=== PATIENT | male | born 1965 | race Caucasian/White ===

== ENCOUNTER 2023-12-03 07:38 | Inpatient (IN) | payer OTHER, SELFPAY ==
[2023-12-03] VITALS (20 sets, daily range): BP systolic 137–195; BP diastolic 85–105; BMI 30.3
[2023-12-03] MEDS: CELEBREX 200 MG PO (08:14)
[2023-12-03] MEDS: TYLENOL 1000 MG PO (08:14)
--- NOTE | 2023-12-03 13:46 | W.PN.UPDATE ---
Update Note
Progress Note Update
58M s/p R rTSA explant, debridement and irrigation and temporary antibiotic cement spacer hemiarthroplasty stage 1 for periprosthetic joint infection with Dr. Washington
-preop lab testing from [facility] shows C. acnes on growth from draining proximal wound, sensitivities not performed
-vanc powder and abx IV given intraop after multiple cultures taken
-NWB to RUE; sling to RUE; OT consult
-D/C planning; PICC line placed preop
-ID consulted, pending recs; appreciate assistance in management of this patient
-AM labs ordered for CBC, CMP, ESR and CRP- further labs per ID recs for trending inflammatory markers
-reports itching from some opioids, requested tramadol- pain regimen placed.
-DVT ppx of 81mg BID.
-regular diet
-possible discharge 1-2 days pending ID recs and d/c planning.
[2023-12-03] MEDS: SUBLIMAZE 50 MCG IV ×2 (13:50→14:18)
[2023-12-03] MEDS: TYLENOL 650 MG PO ×3 (16:01→23:51)
[2023-12-03] MEDS: TRANDATE 5 MG IV (16:19)
[2023-12-03] MEDS: NORMOSOL-R 1000 IV (17:01)
--- NOTE | 2023-12-03 17:03 | CON.ID ---
Consultation
-
Date/Time Consultation Requested: December 03, 2023 1330
Date/Time Consultation Performed: December 03, 2023 1700
Requesting Provider: Dr. Gustavo Washington
Performing Provider: Dr. Karen Brizuela
Reason for Consultation: Infected shoulder prosthetic joint
Chief Complaint / Past History
Chief Complaint
Painful shoulder
History of Present Illness
58-year-old male with history of hypertension, hypothyroidism, reverse total shoulder arthroplasty in September 2022 at [facility]. He then started having right shoulder pain approximately 3 months ago. More than 1 month ago he developed he
developed a golf ball sized lump on his shoulder. His orthopedic at [facility] sent him for ultrasound-guided aspiration of the shoulder which which showed francisco pus. He was started on doxycycline right away. However the lump continued to
enlarge and developed a grullon. He had surrounding erythema and significant pain. The orthopedic office aspirated the shoulder abscess. By report culture culture grew Cutibacterium acne. However his orthopedic has retired and patient was
therefore referred to Dr. Washington. Today he is status post explant of the prosthesis, placement of antibiotic impregnated cement spacer. Positive sweats at night. Patient reports that this is a Worker's Compensation case. He has had multiple
injuries from work. 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
Past History
Additional Past Medical History:
Hypothyroidism
Hypertension
Dyslipidemia
Right shoulder replacement 2022 at [facility]
Bilateral knee replacement
L4-L5 surgery with hardware.
Left elbow, bilateral wrists, right arm surgeries
Allergy History:
cat dander Allergy (Verified 12/03/23 08:05)
congestion
Opioids - Morphine Analogues Allergy (Verified 12/03/23 16:13)
Itching
sheep derived (ovine) Allergy (Verified 12/03/23 16:13)
mouth & tongue swells
walnut Allergy (Verified 12/03/23 16:13)
mouth & tongue swells
GOAT PRODUCTS Allergy (Uncoded 12/03/23 16:13)
mouth & tongue swells
Medications Reviewed: Yes
Current Antibiotics:
cefazolin pre-op
Social History
Tobacco: Non-Smoker
Alcohol: Occasional
Drug: None
Personal:
Living: With Family
Family History
Family History: Not Pertinent
Review of Systems
Review of Systems
Cardiovascular: Negative Chest Pain or Dyspnea
Respiratory: Negative Dyspnea or Cough
Gasteroenterology: Negative Nausea or Vomiting
Genital / Urological: Negative Dysuria or Flank Pain
Endocrine: Negative Weakness
Skin / Hair / Nails: Negative Rash
Neurological: Negative Headache or Dizziness
All systems: All other systems were reviewed and were negative
Vital Signs
Temp Pulse Resp BP Pulse Ox
97.8 F 69 16 158/89 96
12/03/23 13:30 12/03/23 16:30 12/03/23 16:30 12/03/23 16:30 12/03/23 16:30
Physical Exam
Physical Exam
Constitutional: No Acute Distress and Comfortable
Eyes: No Conjunctival Hemorrhage and Sclera Anicteric
Cardiovascular: Regular Rate and S1/S2
Pulmonary: Clear
Gastrointestinal: Soft, Non Tender, Non Distended and Normal Bowel Sounds
Extremities: Negative Edema
Musculoskeletal: Other (Right shoulder post-op dressing in place.)
Neurological: AO x 3
Lines: PICC (LUE intact)
Microbiology Results
Micro:
12/03/23 12:25 Fungal Smear - Pending
Shoulder - Right
12/03/23 12:25 Anaerobic Culture - Pending
Shoulder - Right
12/03/23 12:25 Wound Culture - Pending
Shoulder - Right Gram Stain - Pending
12/03/23 11:33 Fungal Culture - Pending
Shoulder - Right
12/03/23 11:33 Anaerobic Culture - Pending
Shoulder - Right
12/03/23 11:33 Wound Culture - Pending
Shoulder - Right Gram Stain - Pending
12/03/23 11:45 Fungal Culture - Pending
Shoulder - Right
12/03/23 11:45 Anaerobic Culture - Pending
Shoulder - Right
12/03/23 11:45 Wound Culture - Pending
Shoulder - Right Gram Stain - Pending
12/03/23 11:50 Fungal Culture - Pending
Shoulder - Right
12/03/23 11:50 Anaerobic Culture - Pending
Shoulder - Right
12/03/23 11:50 Wound Culture - Pending
Shoulder - Right Gram Stain - Pending
12/03/23 11:36 Tissue Culture - Pending
Shoulder - Right Gram Stain - Pending
12/03/23 11:36 Fungal Culture - Pending
Shoulder - Right
12/03/23 11:36 Anaerobic Culture - Pending
Shoulder - Right
12/03/23 11:18 Tissue Culture - Pending
Tissue Gram Stain - Pending
12/03/23 11:18 Fungal Culture - Pending
Tissue
12/03/23 11:18 Anaerobic Culture - Pending
Tissue
12/03/23 11:47 Fungal Culture - Pending
Shoulder - Right
12/03/23 11:47 Anaerobic Culture - Pending
Shoulder - Right
12/03/23 11:47 Wound Culture - Pending
Shoulder - Right Gram Stain - Pending
Assessment / Plan
# Right shoulder late PJI
- Outpt aspiration cx C. acne
- 12/03/23 s/p hardware explant, abx cement spacer Stage 1 of 2 revision
- Multiple OR cx's pending
- Recommend ceftriaxone 2g IV q24 x 6 weeks through 01/14/24.
Home Infusion Sheet placed in chart and [place]-Texted to case management.
--- NOTE | 2023-12-03 18:02 | PTCARENOTE ---
Received patient from PACU around 1715 via bed in stable condition. Sling to RUE with aquacel to shoulder C/D/I. + movement +sensation + radial pulse. Patient BP elevated. Dr. Washington made aware. Patient oriented to room. Call childers in reach.
[2023-12-03] MEDS: COREG 3.125 MG PO (18:11)
[2023-12-03] MEDS: STERILE WATER FOR INJECTION 20 ML IV (18:11)
[2023-12-03] MEDS: ROCEPHIN 2000 MG IV (18:11)
[2023-12-03] MEDS: LOW STRENGTH ASPIRIN 81 MG PO (20:24)
[2023-12-03] MEDS: NEURONTIN 800 MG PO (20:24)
[2023-12-03] MEDS: SENOKOT 17.1999999999999993 MG PO (20:25)
[2023-12-03] MEDS: COLACE 100 MG PO (20:25)
[2023-12-03] MEDS: FLOMAX 0.400000000000000022 MG PO (23:51)
[2023-12-03] MEDS: DILAUDID 0.5 MG IV (23:52)
--- NOTE | 2023-12-04 00:30 | PTCARENOTE ---
2030: Spoke to pt about straight cath protocol, pt asked for more time prior to being straight cathed. Pt stated that he does not have the urge to void at this time. RN explained that 6 hrs from last void, per hospital protocol, pt must be bladder
scanned and if >400, pt will be straight cathed. Pt verbalized understanding. Bladder scan result 386.
0000: Pt was bladder scanned for 615, pt asked to sit on toilet to try to void. PRN flomax given and RN told patient that straight cath will be done if no void in near future. 0030 - patient was straight cathed for 825 clear yellow urine, again RN
explained bladder scan and straight cath protocol, patient verbalized understanding. assessment ongoing.
[2023-12-04 03:05] VITALS: BP 165/107
[2023-12-04] MEDS: TYLENOL PO ×2 (04:07→14:52)
[2023-12-04 05:04] LABS: % Basophils 0.1 % (0-2); % Immature Granulocytes 0.4 % (0-0.5); % Lymphocytes 11.1 % (20.5-51.1); % Monocytes 4.1 % (1.7-9.3); % Neutrophils 84.3 % (42.2-75.2); Absolute Lymphocytes 1.1 10^3/uL (1.2-3.4); Absolute Monocytes 0.4 10^3/uL (0.1-0.6); Hematocrit 34.7 % (39.0-52.0); Hemoglobin 11.1 g/dL (13.0-18.0); Mean Corpuscular Hgb 27.5 pg (27.0-31.0); Mean Corpuscular Volume 86.1 fL (80.0-94.0); Mean Platelet Volume 10.2 fL (7.4-10.4); Nucleated Red Blood Cells % 0 % (-); Platelet Count 221 10^3/uL (130-400); Red Blood Cell Count 4.03 10^6/uL (4.70-6.10); Red Cell Dist. Width 15.2 % (11.5-14.5); White Blood Cell Count 9.5 10^3/uL (4.8-10.8)
[2023-12-04 05:34] LABS: ALT (SGPT) 15 U/L (0-50); AST (SGOT) 19 U/L (17-59); Albumin 3.4 g/dl (3.5-5.0); Alkaline Phosphatase 129 U/L (38-126); Blood Urea Nitrogen 21 mg/dl (9-20); Calcium 8.4 mg/dl (8.4-10.2); Carbon Dioxide 24 mmol/L (22-30); Chloride 106 mmol/L (98-107); Estimated Creatinine Clearance 82 ml/min; Glucose 173 mg/dl (70-99); Potassium 4.6 mmol/L (3.5-5.1); Sodium 141 mmol/L (135-145); Total Bilirubin 0.3 mg/dl (0.2-1.3); Total Protein 6.2 g/dl (6.3-8.2); eGFR > 60.00
[2023-12-04] MEDS: SYNTHROID 137 MCG PO (05:55)
--- NOTE | 2023-12-04 07:21 | W.PN.ORTHO ---
Today's Communication / Plan
-
Sling in place
Nonweightbearing right upper extremity
PICC line in place with antibiotics per ID recommendation
Follow labs
Unfortunately patient states that he is allergic to all pain medication. Discussed pain medication options and he states that he does not know. For now try tramadol along with Benadryl to help offset the itch. Hopefully when his comes in
today she may be able to relay what type of pain medication he has tolerated in the past
Throat irritation noted likely from anesthesia yesterday so throat lozenge are ordered
Home once medically stable
Assessment
.
Distal Motor Intact: Yes
Dressing:
Clean, dry and intact
Adjustments made to sling and hopefully this helps
Plan
.
Surgery / Date: Explant R TSA w/ katiuska/ABX spacer 12/02 Ritting
DVT Prophylaxis: Aspirin
Activity:
Out of bed.
PT/OT
Discharge Plan: Home
Subjective
.
.:
Patient is in a lot of pain this morning. He did not sleep at all last night. He has been having a lot of itching on the bottom of his feet. His pain is a 10 out of 10. Unfortunately he states that he is allergic to all pain medication. We will
try tramadol along with Benadryl and see how he does this morning.
Vital Signs and Labs
.
Vital Signs and Labs:
Lab Results
12/04/23 04:16
12/04/23 04:16
Temp Pulse Resp BP Pulse Ox
97.7 F 78 18 165/107 98
12/04/23 03:05 12/04/23 03:05 12/04/23 03:05 12/04/23 03:05 12/04/23 03:05
--- NOTE | 2023-12-04 07:23 | PTCARENOTE ---
RN attempted to medicated pt for c/o pain to right shoulder. Pt in room with immobilizer in pieces, attempting to piece it back together. RN offered help, pt said to leave him alone. Declined pain med and PVR scan. MANNY Macedo made aware.
[2023-12-04 08:02] LABS: Erythrocyte Sed Rate 15 mm/hour (0-20)
[2023-12-04] MEDS: BENADRYL 25 MG IV ×3 (08:48→22:00)
[2023-12-04] MEDS: ANESTHETIC LOZENGE 1 LOZENGE PO ×2 (08:48→12:35)
[2023-12-04] MEDS: TYLENOL 650 MG PO ×3 (09:01→20:41)
[2023-12-04 09:25] VITALS: BP 171/100
[2023-12-04] MEDS: COZAAR 50 MG PO (09:32)
[2023-12-04] MEDS: COREG 3.125 MG PO ×2 (09:33→20:41)
[2023-12-04] MEDS: NEURONTIN 800 MG PO ×2 (09:34→20:41)
[2023-12-04] MEDS: LOW STRENGTH ASPIRIN 81 MG PO ×2 (09:34→20:41)
[2023-12-04] MEDS: SENOKOT 17.1999999999999993 MG PO ×2 (09:34→20:41)
[2023-12-04] MEDS: COLACE 100 MG PO ×2 (09:34→20:41)
[2023-12-04] MEDS: PROTONIX 40 MG PO (09:34)
--- NOTE | 2023-12-04 09:38 | W.PN.ID1 ---
Date of Service
Date of Service: December 04, 2023
Today's Communication
Continue ceftriaxone 2g IV q24 x 6 weeks through 01/14/24.
Assessment / Plan
# Right shoulder late PJI
- Outpt aspiration cx C. acne
- 12/03/23 s/p hardware explant, abx cement spacer Stage 1 of 2 revision
- Multiple OR cx's pending
- Continue ceftriaxone 2g IV q24 x 6 weeks through 01/14/24.
Home Infusion Sheet submitted to shoe caser.
#Additional Past Medical History:
Hypothyroidism
Hypertension
Dyslipidemia
Right shoulder replacement 09/2022 at [facility]
Bilateral knee replacement
L4-L5 surgery with hardware.
Left elbow, bilateral wrists, right arm surgeries
Chief Complaint
-: Other (PJI)
Subjective / Review of Systems
+ post-op pain. c/o itiching from narcotic
Vital Signs / Physical Exam
Vital Signs
Vital Signs
Temp Pulse Resp BP Pulse Ox
98.2 F 75 20 171/100 96
12/04/23 09:25 12/04/23 09:25 12/04/23 09:25 12/04/23 09:25 12/04/23 09:25
Physical Exam
Constitutional: Comfortable
Cardiovascular: Regular Rate and S1/S2
Pulmonary: Clear
Gastrointestinal: Soft, Non Tender and Non Distended
Neurological: AO x 3
Lines: PICC (LUE)
Objective Data
Lab Data
Lab Results
12/04/23 04:16
12/04/23 04:16
ESR 15 mm/hour (0-20) 12/04/23 04:16
Estimated Creat Clear 82 ml/min 12/04/23 04:16
Total Bilirubin 0.3 mg/dl (0.2-1.3) 12/04/23 04:16
AST 19 U/L (17-59) 12/04/23 04:16
ALT 15 U/L (0-50) 12/04/23 04:16
Alkaline Phosphatase 129 U/L (38-126) H 12/04/23 04:16
C-Reactive Protein 10.10 mg/L (0.0-10.00) H 12/04/23 04:16
Most recent labs reviewed.
Micro Results:
12/03/23 11:47 Wound Culture - Pending
Shoulder - Right Gram Stain - Preliminary
12/03/23 12:25 Wound Culture - Pending
Shoulder - Right Gram Stain - Preliminary
12/03/23 11:50 Wound Culture - Pending
Shoulder - Right Gram Stain - Preliminary
12/03/23 11:33 Wound Culture - Pending
Shoulder - Right Gram Stain - Preliminary
12/03/23 11:18 Tissue Culture - Pending
Tissue Gram Stain - Preliminary
12/03/23 11:36 Tissue Culture - Pending
Shoulder - Right Gram Stain - Preliminary
12/03/23 11:45 Wound Culture - Pending
Shoulder - Right Gram Stain - Preliminary
12/03/23 11:36 Fungal Culture - Preliminary
Shoulder - Right Culture in progress.
Positive cultures are reported as soon as detected.
Final report to follow in four to five weeks.
12/03/23 11:18 Fungal Culture - Preliminary
Tissue Culture in progress.
Positive cultures are reported as soon as detected.
Final report to follow in four to five weeks.
12/03/23 11:47 Fungal Culture - Preliminary
Shoulder - Right Culture in progress.
Positive cultures are reported as soon as detected.
Final report to follow in four to five weeks.
12/03/23 11:33 Fungal Culture - Preliminary
Shoulder - Right Culture in progress.
Positive cultures are reported as soon as detected.
Final report to follow in four to five weeks.
12/03/23 11:45 Fungal Culture - Preliminary
Shoulder - Right Culture in progress.
Positive cultures are reported as soon as detected.
Final report to follow in four to five weeks.
12/03/23 11:50 Fungal Culture - Preliminary
Shoulder - Right Culture in progress.
Positive cultures are reported as soon as detected.
Final report to follow in four to five weeks.
12/03/23 12:25 Fungal Smear - Pending
Shoulder - Right
12/03/23 12:25 Anaerobic Culture - Pending
Shoulder - Right
12/03/23 11:33 Anaerobic Culture - Pending
Shoulder - Right
12/03/23 11:45 Anaerobic Culture - Pending
Shoulder - Right
12/03/23 11:50 Anaerobic Culture - Pending
Shoulder - Right
12/03/23 11:36 Anaerobic Culture - Pending
Shoulder - Right
12/03/23 11:18 Anaerobic Culture - Pending
Tissue
12/03/23 11:47 Anaerobic Culture - Pending
Shoulder - Right
[2023-12-04] MEDS: ULTRAM 25 MG PO (09:47)
--- NOTE | 2023-12-04 09:49 | CM ---
Addendum entered by TAD Fernandez 12/04/23 16:19:
patient to stay overnight and be dc tomorrow. He will arrange to get a ride. He spoke to Vannesa at [facility] and has 1400 appt on 12/05/23 at infusion center.
Addendum entered by TAD Fernandez 12/04/23 15:34:
Vannesa from [facility] has auth from worker's comp. Vannesa suggesting use [facility] infusion center near [facility] for first infusion tomorrow with training by their staff. Then every Friday he has to come back to get dressing change and
and lab draws. [facility] offers transport if needed for the Mondays. Navigator spoke to patient who is agreeable to go to Infusion center tomorrow for training and weekly thereafter for lab draws and PICC dressing changes.
Patient can get ride for tomorrow and has ride home later today.
TT sent to Khai BRYANT and Dr. Washington and DR. Byrne with update and to get discharge done.
Addendum entered by TAD Fernandez 12/04/23 10:00:
SPoke to Vannesa at [facility]. Faxing clinical, script, PICC line , Chest xray and face sheet to her. fax [phone]
Original Note:
Met [facility] patient who is admitted after Explant R TSA w/ katiuska/ABX spacer 12/02. He lives with in multi level home. 3 steps in with half bath on entry manager. UP full flight to full bathroom and bedrooms. He has rolling walker, cane,
crutches and thinks he has commode at home.
Prior to admit he was independent at home.
This is a worker's compensation case.
Patient said he has had trouble with worker's comp and has hired an attorney lawyer at [employer] [employer] with [employer] phone [phone].
Navigator left VM with Beatriz at partition notcher office asking if ok to send Hakan Garber at [employer] clinical to get coverage for home IV antibiotics. Navigator spoke to Hakan :His fax is [phone]. He said his company has used [facility] in past and
to send referral to them.
Navigator to send referral for IV antibiotics in [employer]scripts and fax information to office.
PCP Dr. Azam Lou
Pharmacy: [place] [place] [facility].
PLAN: home with IV antibiotics and labs to be drawn
[2023-12-04 10:21] VITALS: BP 171/98; PULSE 72
[2023-12-04] MEDS: ROCEPHIN 2000 MG IV (12:21)
[2023-12-04] MEDS: STERILE WATER FOR INJECTION 20 ML IV (12:21)
[2023-12-04 15:27] VITALS: BP 166/85
[2023-12-04] MEDS: DILAUDID 0.5 MG IV ×2 (17:13→22:27)
--- NOTE | 2023-12-04 17:48 | W.PN.UPDATE ---
Update Note
Progress Note Update
[place] text from Tanya Blanco that patient is all set up to go to an outpatient transfusion center for education on how to administer his IV antibiotics. Dr. Brizuela from infectious disease has recommended ceftriaxone 2 g IV x 6 weekss. Called and
spoke to patient's nurse, Shaneka Dennis, for patient update. He seems to be doing better with regards to pain. Tramadol does not completely control his pain. He has been doing Benadryl with Dilaudid which seems to work much better which control his
itching on the bottom of hi feet. He has been able to urinate on his own. Blood pressure has been elevated because of pain. Cannot obtain BP from right upper extremities because of surgery and PICC line left arm so BP obtained from his calf which
are not always accurate. Discussed with Jonathan Cuevas PA-C who is rounding tomorrow. Discharge instructions completed for tomorrow but will have to send prescriptions for pain medication
[2023-12-04] MEDS: LIPITOR 80 MG PO (20:42)
[2023-12-04 23:10] VITALS: BP 175/86
[2023-12-04 23:30] VITALS: BP 165/99
[2023-12-05] MEDS: TYLENOL PO (00:52)
[2023-12-05] MEDS: BENADRYL 25 MG IV ×2 (03:42→08:19)
[2023-12-05] MEDS: TYLENOL 650 MG PO ×2 (04:09→08:25)
[2023-12-05] MEDS: ROXICODONE 5 MG PO ×2 (04:09→08:27)
[2023-12-05] MEDS: SYNTHROID 137 MCG PO (05:10)
--- NOTE | 2023-12-05 06:08 | W.PN.ORTHO ---
Today's Communication / Plan
-
58-year-old male POD #2 Explant R TSA w/ katiuska/ABX spacer 6/5 Ritting
- Sling in place
- Nonweightbearing right upper extremity
- PICC line in place with antibiotics per ID recommendation
- Follow labs and intra-op cultures
- Patient reports less itchiness with Dilaudid. Prescription for Dilaudid 2 mg q6 hr PRN sent to pharmacy on file through [facility] with rx for Benadryl
- ASA 81mg BID x 4 weeks for DVT prophylaxis
- Patient will follow-up with orthopedics as an outpatient in 2 weeks
Assessment
.
Distal Motor Intact: Yes
Dressing:
Clean, dry and intact.
Assessment:
Explant R TSA w/ katiuska/ABX spacer 6/5 Ritting
Plan
.
Surgery / Date: Explant R TSA w/ katiuska/ABX spacer / Ritting
DVT Prophylaxis: Aspirin
Activity:
Out of bed.
PT/OT
Discharge Plan: Home
Subjective
.
.:
Patient resting comfortably. Reports less itchiness with Dilaudid. Eager for discharge.
Vital Signs and Labs
.
Vital Signs and Labs:
Lab Results
12/04/23 04:16
12/04/23 04:16
Temp Pulse Resp BP Pulse Ox
97.9 F 60 18 165/99 95
12/04/23 23:10 12/04/23 23:10 12/04/23 23:10 12/04/23 23:30 12/04/23 23:10
Physical Exam
-
Physical examination of the right upper extremity, with attention to the right shoulder reveals Aquacel dressing to be intact. Scant bloody drainage contained within the Aquacel dressing. Sling intact. No erythema. Digital ROM intact. Capillary
refills less than 2 seconds. NVI distally.
--- NOTE | 2023-12-05 06:20 | W.DS.TRANS ---
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
-
Discharge Instructions:
Sleep Apnea Risk Intermediate
Discharge Diagnosis/Procedures R shoulder explant prosthesis w/ temporary
antibiotic spacer
Diet No restrictions
Driving Restrictions Not until seen by your Dr
Bathing Restrictions OK to Shower
Instructions:
Stand-Alone Forms:
Changes to Home Medications: No
Discharge Medications:
DC Medications w/original date entered in [employer]
aspirin 81 mg tablet,delayed release 81 mg PO DAILY 12/01/23
atorvastatin 80 mg tablet 80 mg PO DAILY 12/01/23
carvedilol 3.125 mg tablet 3.125 mg PO BID 12/01/23
esomeprazole magnesium 40 mg capsule,delayed release 40 mg PO DAILY 12/01/23
gabapentin 800 mg tablet 800 mg PO BID 12/01/23
levothyroxine 137 mcg tablet (Synthroid) 137 mcg PO DAILY 12/01/23
losartan 50 mg tablet 50 mg PO DAILY 12/01/23
hydromorphone 2 mg tablet (Dilaudid) 2 mg PO Q6H PRN Pain #30 tabs 12/05/23
Home Medication Changes
Pending Results: No
Total time spent discharging patient (in min): 45 Minutes
[2023-12-05 08:09] VITALS: BP 183/98
[2023-12-05] MEDS: PROTONIX 40 MG PO (08:24)
[2023-12-05] MEDS: NEURONTIN 800 MG PO (08:24)
[2023-12-05] MEDS: COLACE 100 MG PO (08:25)
[2023-12-05] MEDS: LOW STRENGTH ASPIRIN 81 MG PO (08:25)
[2023-12-05] MEDS: COREG 3.125 MG PO (08:26)
[2023-12-05] MEDS: COZAAR 50 MG PO (08:26)
[2023-12-05] MEDS: SENOKOT 17.1999999999999993 MG PO (08:27)
--- NOTE | 2023-12-05 08:48 | CM ---
Addendum entered by TAD Fernandez 12/05/23 10:52:
phone [phone]. left voicemail to sweet pickled fruit maker patient at [facility]. Left Navigator cell phone number.
Patient prefers to get discharge instructions then meet at [facility]. RN for patient updated.
Original Note:
DIscharge in. Met with patient. HIs will pick him up at noon today.
PRovided written information to patient on who current adjustor is at [facility] [place] [facility] who approved home IV antibiotics.
[2023-12-05] MEDS: ROCEPHIN IV (12:01)
== END 2023-12-05 12:17 | disposition home or self-care (01) | DRG 497 ==
LOC: 2 SOUTH 07:38
PROVIDERS: Physician Assistant Surgical; ADMITTING PHYSICIAN Orthopaedic Surgery Hand Surgery; FAMILY PHYSICIAN Family Medicine; OTHER PHYSICIAN Internal Medicine Infectious Disease
PROC: 0RHJ08Z Insertion of Spacer into Right Shoulder Joint, Open Approach (ICD-10-PCS; 2023-12-03)
PROC: 0RPJ0JZ Removal of Synthetic Substitute from Right Shoulder Joint, Open Approach (ICD-10-PCS; 2023-12-03)
DX: T84.59XA Infection and inflammatory reaction due to other internal joint prosthesis, initial encounter (principal); I10 Essential (primary) hypertension; E03.9 Hypothyroidism, unspecified; Y79.2 Prosthetic and other implants, materials and accessory orthopedic devices associated with adverse incidents; E78.5 Hyperlipidemia, unspecified; Z96.611 Presence of right artificial shoulder joint; Z96.653 Presence of artificial knee joint, bilateral; Z79.82 Long term (current) use of aspirin; Z79.890 Hormone replacement therapy; Z79.899 Other long term (current) drug therapy; Z88.5 Allergy status to narcotic agent
CPT/HCPCS: 71045; 73020; 80053; 85025; 85652; 86140; 87070; 87075; 87076; 87077; 87102; 87176; 87205; 87206; 97165; 97535; C1713; C1776

== ENCOUNTER 2023-12-18 12:39 | Emergency (ER) | payer SELFPAY ==
[2023-12-18 12:41] VITALS: BP 157/105
--- NOTE | 2023-12-18 15:02 | ED.GENMED ---
History of Present Illness
General
Chief Complaint: Catheter/Tube Problem
Source: patient
Exam Limitations: none
Time Seen by Provider: 12/18/23 14:57
History of Present Illness
History of Present Illness:
58-year-old male presents for evaluation of bleeding site of PICC line at the left upper extremity. He is receiving IV antibiotics for shoulder infection. No fevers otherwise. No other complaints
Phy Exam
Physical Exam
Physical Exam:
General: Well-appearing male no acute respiratory distress
HEENT: Normocephalic atraumatic
Skin: PICC line left upper extremity now with new dressing no current bleeding no surrounding erythema nontender
Course
Vital Signs
Initial and Last Documented VS:
Initial Vital Signs
Temp Pulse Resp BP Pulse Ox
98.5 F 77 18 157/105 99
12/18/23 12:41 12/18/23 12:41 12/18/23 12:41 12/18/23 12:41 12/18/23 12:41
Last Documented Vital Signs
Temp Pulse Resp BP Pulse Ox
98.5 F 77 18 157/105 99
12/18/23 12:41 12/18/23 12:41 12/18/23 12:41 12/18/23 12:41 12/18/23 12:41
MDM/Problems Addressed
Differential Diagnosis Includes:
Bleeding from PICC line. The IV team was in the room and evaluating the patient and change the dressing. No further bleeding the patient is hemostatic. No indication for further intervention from the ER standpoint. Stable for discharge
*Critical Care Note
Total Time (30-74mins, 75-104mins- exclusive of procedures): Not Applicable
ED Attending Note
-
Portions of this chart may have been created with voice recognition software.� Occasional wrong word or��sound alike� substitutions may have occurred due to the inherent limitations of voice recognition software.
Discharge Plan
Departure
Patient Disposition: Home (Routine Discharge)
Date of Disposition: 12/18/23
Time of Disposition: 15:07
Patient with high blood pressure during this ER visit?: No
Discharge Problem:
Bleeding from PICC line
Instructions: Peripherally-Inserted Central Catheter
Prescriptions:
No Action
losartan 50 mg Tablet
50 mg PO DAILY
levothyroxine [Synthroid] 137 mcg Tablet
137 mcg PO DAILY
atorvastatin 80 mg Tablet
80 mg PO DAILY
carvedilol 3.125 mg Tablet
3.125 mg PO BID
gabapentin 800 mg Tablet
800 mg PO BID
esomeprazole magnesium 40 mg Capsule,Delayed Release(Dr/Ec)
40 mg PO DAILY
ceftriaxone 2 gram Recon Soln
2,000 mg IV Q24H 42 Days Qty: 45 0RF
hydromorphone [Dilaudid] 2 mg tablet
2 mg PO Q6H PRN (Reason: Pain) Qty: 30 0RF
Rx Instructions:
Rx sent to pharmacy on file through [facility]
diphenhydramine HCl [Benadryl] 25 mg capsule
25 mg PO .every 6-8 hours PRN (Reason: itching) Qty: 30 0RF
Rx Instructions:
Rx sent to pharmacy on file through [facility]
aspirin 81 mg Tablet,Delayed Release (Dr/Ec)
81 mg PO BID Qty: 0 0RF
Referrals:
Gustavo Washington MD [Family Provider] -
Activity Restrictions/Additional Instructions:
Please return if needed otherwise continue to seek care through your treating physicians
Interventions
Interventions:
*Risk Screen - Suicide Last Done: 12/18/23 12:41
*General Assessment Last Done: 12/18/23 12:41
*Neglect/Abuse Screening Last Done: 12/18/23 12:41
*ED COVID-19 Vaccine History Last Done: 12/18/23 13:28
Discharge Date and Time
Print Language: KOREAN
== END 2023-12-18 15:14 | disposition home or self-care (01) ==
LOC: EMR 12:39
PROVIDERS: EMERGENCY PHYSICIAN Emergency Medicine; FAMILY PHYSICIAN Orthopaedic Surgery Hand Surgery
DX: T82.838A Hemorrhage due to vascular prosthetic devices, implants and grafts, initial encounter (principal); X58.XXXA Exposure to other specified factors, initial encounter
CPT/HCPCS: 99282

== ENCOUNTER → 2024-01-30 08:28 | Outpatient (REF) | payer OTHER, SELFPAY ==
[2024-01-30 11:07] LABS: % Basophils 1.1 % (0-2); % Immature Granulocytes 0.5 % (0-0.5); % Lymphocytes 27.9 % (20.5-51.1); % Monocytes 8.7 % (1.7-9.3); % Neutrophils 55.8 % (42.2-75.2); Absolute Basophils 0.1 10^3/uL (0-0.2); Absolute Eosinophils 0.4 10^3/uL (0-0.7); Absolute Lymphocytes 1.7 10^3/uL (1.2-3.4); Absolute Monocytes 0.5 10^3/uL (0.1-0.6); Absolute Neutrophils 3.5 10^3/uL (1.4-6.5); Hematocrit 44.7 % (39.0-52.0); Hemoglobin 14.6 g/dL (13.0-18.0); Mean Corp Hgb Conc. 32.7 g/dL (33.0-37.0); Mean Corpuscular Hgb 28.5 pg (27.0-31.0); Mean Corpuscular Volume 87.3 fL (80.0-94.0); Mean Platelet Volume 10.4 fL (7.4-10.4); Nucleated Red Blood Cells % 0 % (-); Platelet Count 223 10^3/uL (130-400); Red Blood Cell Count 5.12 10^6/uL (4.70-6.10); Red Cell Dist. Width 14.6 % (11.5-14.5); White Blood Cell Count 6.2 10^3/uL (4.8-10.8)
[2024-01-30 11:20] LABS: Blood Urea Nitrogen 15 mg/dl (9-20); Calcium 9.5 mg/dl (8.4-10.2); Carbon Dioxide 26 mmol/L (22-30); Chloride 109 mmol/L (98-107); Glucose 103 mg/dl (70-99); Potassium 4.5 mmol/L (3.5-5.1); Sodium 143 mmol/L (135-145); eGFR > 60.00
[2024-01-30 11:24] LABS: Erythrocyte Sed Rate 5 mm/hour (0-20)
[2024-01-30 11:29] LABS: C-Reactive Protein < 5.00 mg/L (0.0-10.00)
[2024-01-30 11:47] LABS: Glycohemoglobin (HgbA1c) 5.8 % (4.0-5.6)
== END ==
LOC: REG 08:28
PROVIDERS: ATTENDING PHYSICIAN Orthopaedic Surgery Hand Surgery; FAMILY PHYSICIAN Family Medicine; REFERRING PHYSICIAN Family Medicine
DX: N17.9 Acute kidney failure, unspecified (principal)
CPT/HCPCS: 36415; 80048; 83036; 85025; 85652; 86140; 87070

== ENCOUNTER 2024-02-04 06:35 | Inpatient (IN) | payer OTHER, SELFPAY ==
[2024-02-04] VITALS (9 sets, daily range): BP systolic 109–158; BP diastolic 71–98; BMI 29.6
[2024-02-04] MEDS: NORMOSOL-R 1000 IV (07:41)
[2024-02-04] MEDS: VANCOCIN 300 MG IV (07:42)
[2024-02-04] MEDS: VANCOCIN 300 ML IV (07:42)
[2024-02-04] MEDS: CELEBREX 200 MG PO (07:50)
[2024-02-04] MEDS: TYLENOL 1000 MG PO (07:58)
[2024-02-04] MEDS: VANCOCIN 200 IV (11:58)
== END 2024-02-04 13:35 | disposition home or self-care (01) | DRG 483 ==
LOC: PACUI 06:35
PROVIDERS: ADMITTING PHYSICIAN Orthopaedic Surgery Hand Surgery
PROC: 0RRJ0JZ Replacement of Right Shoulder Joint with Synthetic Substitute, Open Approach (ICD-10-PCS; 2024-02-04)
PROC: 0RPJ08Z Removal of Spacer from Right Shoulder Joint, Open Approach (ICD-10-PCS; 2024-02-04)
DX: T84.59XA Infection and inflammatory reaction due to other internal joint prosthesis, initial encounter (principal); Y83.1 Surgical operation with implant of artificial internal device as the cause of abnormal reaction of the patient, or of later complication, without mention of misadventure at the time of the procedure; Z96.611 Presence of right artificial shoulder joint; Z98.890 Other specified postprocedural states
CPT/HCPCS: 23474; 20705; 73020; C1713; C1776

== ENCOUNTER 2024-02-18 06:21 | Day surgery (SDC) | payer OTHER, SELFPAY ==
[2024-02-18] VITALS (10 sets, daily range): BP systolic 12–173; BP diastolic 91–105; BMI 29.8
[2024-02-18] MEDS: TYLENOL 1000 MG PO (13:31)
[2024-02-18] MEDS: NORMOSOL-R 1000 IV (13:32)
== END 2024-02-18 19:07 | disposition home or self-care (01) ==
LOC: SDS 06:21
PROVIDERS: ATTENDING PHYSICIAN Orthopaedic Surgery Hand Surgery
DX: T84.028A Dislocation of other internal joint prosthesis, initial encounter (principal); Y79.2 Prosthetic and other implants, materials and accessory orthopedic devices associated with adverse incidents; M25.511 Pain in right shoulder; Z96.611 Presence of right artificial shoulder joint
CPT/HCPCS: 23655; 73020; 76000